=== PATIENT | female | born 1950 ===

== ENCOUNTER 2017-12-04 07:16 | Day surgery (SDC) | payer MEDICARE ==
[2017-12-04] MEDS ORDERED: Lactated Ringer's 500 ML IV ONE (07:48)
[2017-12-04 08:19] VITALS: O2SAT 99
[2017-12-04] MEDS ORDERED: Midazolam 2 MG/2 ML VIAL ONE (08:47)
[2017-12-04] MEDS ORDERED: Propofol 10 mg/ml Inj (20 ML) ONE (08:47)
[2017-12-04 09:16] VITALS: TEMP 96.8
[2017-12-04 09:46] VITALS: BP 108/56; PULSE 71; RESP 14
== END 2017-12-04 09:49 | disposition home or self-care (01) ==
LOC: H.ENDO 07:16
PROVIDERS: ATTEND Internal Medicine Gastroenterology
DX: K64.4 Residual hemorrhoidal skin tags (principal); I10 Essential (primary) hypertension; E03.9 Hypothyroidism, unspecified; K92.1 Melena
CPT/HCPCS: 45378; 82948; J2250; J2704; J7120

== ENCOUNTER 2017-12-29 07:10 | Observation (INO) | payer MEDICARE ==
[2017-12-29] MEDS ORDERED: Lactated Ringer's 1,000 ML IV ONE ×3 (08:02→17:30)
[2017-12-29] MEDS ORDERED: Bupivacaine 0.5% Inj(30mL) ONE (08:32)
[2017-12-29] MEDS ORDERED: Propofol 10 mg/ml Inj (20 ML) ONE (08:55)
[2017-12-29] MEDS ORDERED: Rocuronium 10 mg/ml (5 ml) ONE (08:56)
[2017-12-29] MEDS ORDERED: Midazolam 2 MG/2 ML VIAL ONE (08:56)
[2017-12-29] MEDS ORDERED: ePHEDrine 50 mg/ml Inj ONE (08:56)
[2017-12-29] MEDS ORDERED: Succinylcholine 200 mg/10 ml Inj IV ONE (08:56)
[2017-12-29] MEDS ORDERED: Phenylephrine 10 mg/ml Inj ONE (09:01)
[2017-12-29] MEDS ORDERED: Morphine 1 mg/ml preservative-free Inj(Duramorph) ONE (09:56)
[2017-12-29] MEDS ORDERED: Bupivacaine 0.5% 50 ML IJ ONE ×2 (10:43→10:57)
[2017-12-29] MEDS ORDERED: Neostigmine 1:1000 (1 mg/ml) Inj ONE (10:47)
--- NOTE | 2017-12-29 11:21 | PCM.SURG1 ---
Surgeon's Initial Post Op Note - Surgeon's Notes Surgeon: Dr. Singh Retail Operations Manager: Dr. Jesus, Dr. Davidson, Dr. Pelayo Type of Anesthesia: General Endo Pre-Operative Diagnosis: Cholelisthiasis Operative Findings: See operative note Post-Operative Diagnosis: Chronic Cholecystitis Operation Performed: Partial Cholecystectomy Specimen/Specimens Removed: Gallbladder Estimated Blood Loss: EBL {In ML}: 75 Blood Products Given: N/A Drains Used: No Drains Post-Op Condition: Good Date of Surgery/Procedure: 12/29/17 Time of Surgery/Procedure: 11:22
[2017-12-29] MEDS ORDERED: Oxycodone/Acetaminophen 5/325 mg Tab PO PRN (11:23)
[2017-12-29] MEDS ORDERED: DiphenhydrAMINE 50 mg/ml Inj IVP PRN (11:31)
--- NOTE | 2017-12-29 11:32 | CP.SDSHP ---
Same Day Surgery H & P - History Proposed Procedure: Paper in chart from office - Allergies Allergies: Allergies No Known Allergies Allergy (Verified 12/04/17 07:55) - Physical Exam Vital Signs: Vital Signs 12/29/17 12/29/17 07:42 07:44 Temperature 98.7 F Pulse Rate 60 60 Respiratory 18 Rate Blood Pressure 130/71 O2 Sat by Pulse 98 Oximetry Short Stay Discharge - Short Stay Discharge Admitting Diagnosis/Reason for Visit: K80.10 Disposition: HOME/ ROUTINE Referrals: Myrna Sánchez MD [Primary Care Provider] - Follow-up: Followup in office 7-10 days Instructions: Cholecystectomy, Laparoscopic Surgery Additional Instructions (Diet, Activity): No heavy lifting over 20lbs for 4 weeks. You may shower tomorrow. You have dissolvable stitches and surgical glue. Do not remove glue or pick incision sites. If you develop fevers chills chest pain new or concerning symptoms please call the office, call your primary care doctor or go to the emergency department.
--- NOTE | 2017-12-29 14:40 | RAD ---
HISTORY: pre-op COMPARISON: No prior. TECHNIQUE: Chest PA and lateral FINDINGS: LUNGS: No active pulmonary disease. PLEURA: No significant pleural effusion identified. No pneumothorax apparent. CARDIOVASCULAR: No radiographic findings to suggest acute or significant cardiovascular disease. OSSEOUS STRUCTURES: No significant abnormalities. VISUALIZED UPPER ABDOMEN: Normal. OTHER FINDINGS: None. IMPRESSION: No active disease.
[2017-12-29] MEDS ORDERED: Lactated Ringer's 1,000 ML IV SCH (17:15)
[2017-12-29 18:39] VITALS: BP 124/63; PULSE 109; RESP 19; TEMP 100; O2SAT 95
[2017-12-29] MEDS ORDERED: Piperacillin/Tazobact 3.375 GM in Sodium Chloride 0.9% 100 ML IVPB SCH (22:00)
--- NOTE | 2017-12-30 02:17 | OP ---
PROCEDURE DATE: 12/29/2017 PREOPERATIVE DIAGNOSIS: Acute cholecystitis. POSTOPERATIVE DIAGNOSES: Acute on chronic cholecystitis with chronic inflammatory changes to the gallbladder. OPERATION PERFORMED: Laparoscopic cholecystectomy. SURGEON: Peter Singh MD VETERINARY PATHOLOGIST: Constantine Jesus MD SECOND VETERINARY PATHOLOGIST: Dr. Wilder Pelayo OPERATIVE FINDINGS: Chronic inflammatory changes to the gallbladder. ESTIMATED BLOOD LOSS: 50 mL. DESCRIPTION OF PROCEDURE: The patient was taken to the operating room and placed supine on the operating room table. After induction of general anesthesia, the abdomen was prepped and draped in the standard surgical fashion. A Veress needle was inserted into the umbilicus and the abdomen was insufflated. Once that was done, a 11-mm trocar was placed in the supraumbilical region and a diagnostic laparoscopy was performed. The patient was found to have large amount of inflammatory changes in the right upper quadrant. A subxiphoid and two right-sided trocars were then placed under direct vision. The patient had adhesions of omentum to the gallbladder as well as duodenum which was then taken down. The gallbladder was hard and had no real planes in order to do the dissection. A combination of the blunt dissection with some sharp dissection was done to bring the dissection down to the area of the triangle of Calot. The triangle of Calot was socked in, has a solid mass with no definable anatomy. At that point, it was decided to do a partial cholecystectomy and the gallbladder was transected using the hook cautery. Once entering the gallbladder, white bile was noted within the gallbladder showing that the gallbladder was not functional. At that point, the gallbladder was dissected off the cystic duct. The cystic artery was posterior to the gallbladder and a clip was applied onto the cystic artery. The gallbladder was then taken off the gallbladder fossa using an electrocautery as well as the spatula. Once that was done, the gallbladder was placed into an EndoCatch bag and removed via the umbilical trocar site. A large amount of saline was used to irrigate the right upper quadrant. Saline was removed. The patient then had the area inspected, there was no evidence of bleeding. Umbilical fascia was then closed using 0 Vicryl suture. The skin incisions were closed using 4-0 Monocryl. The patient then had 10 mL of 0.25% Marcaine infiltrated into the wound. She was awaken from anesthesia and was transferred to recovery room in satisfactory condition. Sponge, instruments and needle counts corrected at the end of the case. Peter Singh MD
== END 2017-12-29 19:40 | disposition home or self-care (01) ==
LOC: H.OPSURG 07:10 → H.ERHOLD 15:39 → INTOOBSV 15:39 → H.MEDSURG1 18:17
PROVIDERS: ADMIT Surgery; ATTEND Surgery
DX: K81.2 Acute cholecystitis with chronic cholecystitis (principal)
CPT/HCPCS: 47562; 71046; 82948; 88304; G0378; J0690; J2001; J2175; J2250; J2270; J2370; J2704; J2710; J2765; J3010; J7120